=== PATIENT | male | born 1940 | race Caucasian/White ===

== ENCOUNTER 2022-09-20 13:13 | Emergency (ER) | payer MEDICARE, BC ==
[2022-09-20] MEDS: Iopamidol 755 Mg/ML 100 ML Bottle IVPUSH ONE (14:41)
[2022-09-20] MEDS: cloNIDine 0.1 MG Tab PO STA (14:49)
[2022-09-20] MEDS: methylPREDNISolone Sodium Succinate 125 MG/2 ML SDV IVPUSH STA (15:22)
[2022-09-20] MEDS: cefTRIAXone 1 GM Vial IVPUSH STA (15:26)
[2022-09-20 15:46] VITALS: BP 170/64; PULSE 85
== END 2022-09-20 16:00 | disposition home or self-care (01) ==
LOC: CC.ED 13:13 → SUPCPDRO 13:13 → CC.ED 16:00
DX: J98.11 Atelectasis (principal); I10 Essential (primary) hypertension; I25.10 Atherosclerotic heart disease of native coronary artery without angina pectoris; Z95.1 Presence of aortocoronary bypass graft; Z88.8 Allergy status to other drugs, medicaments and biological substances; Z79.82 Long term (current) use of aspirin; Z79.899 Other long term (current) drug therapy
CPT/HCPCS: 36415; 71046; 71275; 80053; 84484; 85025; 85379; 86140; 93005; 93010; 96374; 96375; 99284; 99285-25; A9270-GY; J0696; J2930; Q9967